=== PATIENT | female | born 1945 | race Caucasian/White ===

== ENCOUNTER 2016-10-28 16:57 | Emergency (ER) | payer OTHER, MEDICARE ==
[2016-10-28 17:07] VITALS: TEMP 98.1
[2016-10-28] MEDS ORDERED: methylPREDNISolone SOD SUCC 125 MG/2 ML VIAL IVP ONE (17:18)
--- NOTE | 2016-10-28 17:20 | EDPHY ---
H & P Stated Complaint: became dizzy and slipped in bathroom inj lumbar spine - Personal History Current Tetanus/Diphtheria Vaccine: No - Medical/Surgical History Hx Asthma: No Hx Chronic Respiratory Disease: No Hx Diabetes: No Hx Cardiac Disease: No Hx Renal Disease: No Hx Cirrhosis: No Hx Alcoholism: No Hx HIV/AIDS: No Hx Splenectomy or Spleen Trauma: No Other PMH: TIA's October 2013 and Jul 2012, Sleep Apnea, Hyperphosphotemia - Social History Smoking Status: Never smoked Time Seen by Provider: 10/28/16 17:10 HPI/ROS: CHIEF COMPLAINT: Acute paraspinous lumbar back pain HISTORY OF PRESENT ILLNESS: 71-year-old female history of vertigo was taking a shower, started to feel dizzy, feeling as if she is going to fall and as she was bracing herself twisted her back and felt immediate paraspinous lumbar back pain. No direct trauma or fall. 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 She currently denies: Midline pain, incontinence, retention, saddle anesthesia, lower extremity radiculopathy, footdrop Fever, chills, flu-like symptoms. She does have reproducible pain with movement. Regarding her transient dizziness, this was not associated with headache, visual disturbance, palpitations, chest pain, dyspnea, antecedent back pain. This felt like her usual transient vertigo which has been experiencing for some time. PRIMARY CARE PROVIDER: Dr. Cee Reis REVIEW OF SYSTEMS: A ten point review of systems was performed and is negative with the exception of the items mentioned in the HPI PAST MEDICAL & SURGICAL HISTORY: multilevel vertebral fractures . Vertigo SOCIAL HISTORY: nonsmoker no drug use PHYSICAL EXAM (Prior to examination, patient consented to physical exam, hands were washed and my usual and customary physical exam procedures followed) 1) GENERAL: Well-developed, well-nourished, alert and oriented. He appears uncomfortable she is asked to move . 2) HEAD: Normocephalic, atraumatic 3) HEENT: Pupils equal, round, reactive to light bilaterally. Sclera anicteric. Nasopharynx, oropharynx, clear, no lesions. 4) NECK: Full range of motion, no meningeal signs. 5) LUNGS: Clear auscultation bilaterally, no wheezes, no rhonchi, no retractions. 6) HEART: Regular rate and rhythm, no murmur, no heave, no gallop. 7) ABDOMEN: No guarding, no rebound, no focal tenderness, negative McBurney's, negative Wallace's, negative Rovsing's, negative peritoneal sign, 8) MUSCULOSKELETAL: Moving all extremities, no focal areas of tenderness, no obvious trauma. No peripheral edema or discoloration. 9) BACK: tender to palpation bilateral lumbar paraspinous muscle with focal trigger points that are tender. No CVA tenderness, no midline vertebral tenderness, no fluctuance, no step-off, no obvious trauma, no visual or palpable abnormality. Patella, Achilles reflexes intact to bilateral strength 5 /5 10) SKIN: No rash, no petechiae. DIFFERENTIAL DIAGNOSIS: In no particular order, including but not limited to, fracture, sprain/strain, cauda equina, spinal infectious etiology. (Bienvenido Laird) Constitutional: Initial Vital Signs Temperature (C) 36.7 C 10/28/16 17:03 Heart Rate 81 10/28/16 17:03 Respiratory Rate 20 10/28/16 17:03 Blood Pressure 118/83 H 10/28/16 17:03 O2 Sat (%) 94 10/28/16 17:03 O2 Delivery Mode Room Air Allergies/Adverse Reactions: Penicillins Allergy (Verified 10/28/16 17:00) molds Allergy (Uncoded 04/30/14 10:58) novacaine Allergy (Uncoded 04/30/14 10:58) Home Medications: Medication Instructions Recorded Aspirin [Aspirin 81mg (OTC)] 04/30/14 Atorvastatin Calcium 20 mg PO 04/30/14 Calcitriol 0.75 mcg PO 04/30/14 Estradiol [Vagifem] 10 mcg VG 04/30/14 Levothyroxine Sodium 50 mcg PO 04/30/14 Liothyronine Sodium [Liothyronine 04/30/14 Sodium] MAGNESIUM OXIDE 04/30/14 Omeprazole [Omeprazole] 04/30/14 Thc 04/30/14 Trameel Otc Cream 04/30/14 Cyclobenzaprine [Flexeril 10 MG 10 mg PO TID #15 tab 10/28/16 (RX)] Lidocaine 5% [Lidoderm 5% Patch 1 ea TD BID #30 patch 10/28/16 (*)] Myrbetriq 10/28/16 Propranolol HCl 10/28/16 Venlafaxine 25MG (*) 10/28/16 Medical Decision Making - Diagnostics Imaging: Xray of the lumbar spine interpreted by myself: no definitive acute osseous abnormality (Bienvenido Laird) Procedures: 1829 Procedure: Trigger point injection Indications: Focal tenderness at the paraspinous lumbar muscle bilaterally Indications risks benefits discussed with patient. Using Solu-Medrol and 0.5% plain bupivacaine on a 27 gauge needle that was introduced into the muscle, multiple injections were fanned. Patient tolerated procedure well. (Bienvenido Laird) ED Course/Re-evaluation: 5:35 p.m.: Re-evaluation, awaiting x-rays to be performed. 7:20 p.m.: Re-evaluation "feeling much much better" after trigger point injection she would like to be discharged. Lower index of suspicion for cauda equina, epidural abscess, epidural hematoma, lumbar myositis, diskitis, as the patient is neurologically intact in the lower extremities, has patella and Achilles reflexes intact and equal bilaterally, has no neurologic deficits, no incontinence, no retention, no midline pain, no fluctuance, afebrile, no flulike symptoms. Pain may be secondary to muscular strain, may be secondary to discogenic etiology. At this point I do not identify definitive indication for emergent MRI, however patient may necessitate this on an outpatient basis. Patient given acute back pain precautions. Patient verbalizes understanding of discharge instructions. I believe them be competent decision-makers. All questions and concerns have been addressed by me. Ample opportunity for questions have been provided . The patient understands that this diagnosis is provisional and can never be 100 % accurate. Usual and customary warnings were given concerning the clinical impression and all the patient's questions were answered. The patient was instructed to return to the emergency department should her symptoms worsen or return, or develop any new symptoms, otherwise to followup as directed in discharge instructions. (Bienvenido Laird) This patient was primarily evaluated and managed by the physician accountant assistant. I have reviewed the documentation and agree with the plan of care. I am the secondary supervising physician. (Cabeen,Jing A) - Data Points Medications Given: Discontinued Medications Methylprednisolone Sodium Succinate (Solu-Medrol) 125 mg IVP EDNOW ONE Stop: 10/28/16 17:19 Last Admin: 10/28/16 17:41 Dose: 125 mg Departure - Departure Disposition: Home, Routine, Self-Care Clinical Impression: Low back pain Condition: Good Instructions: Low Back Strain (ED) Additional Instructions: Seek medical attention if you develop new or worsening pain, if you develop bladder or bowel dysfunction, numbness around your perineum, foot drop, or any other symptoms that concern you. Referrals: Cee Reis MD [Primary Care Provider] - 2-3 days, call for appt. Prescriptions: Cyclobenzaprine [Flexeril 10 MG (RX)] 10 mg PO TID #15 tab Lidocaine 5% [Lidoderm 5% Patch (*)] 1 ea TD BID #30 patch
[2016-10-28 19:47] VITALS: BP 121/87; PULSE 96; RESP 18; O2SAT 92
== END 2016-10-28 19:47 | disposition home or self-care (01) ==
DX: M54.5 Low back pain (principal); W18.30XA Fall on same level, unspecified, initial encounter; Z79.82 Long term (current) use of aspirin; Z86.73 Personal history of transient ischemic attack (TIA), and cerebral infarction without residual deficits
CPT/HCPCS: 96374